=== PATIENT | male | born 1955 | race Caucasian/White ===

== ENCOUNTER → 2016-10-15 | Day surgery (SDC) | payer BC ==
[~2016-10-15] MED LIST: GLIMEPIRIDE2 MG PO; MEDROL4 MG/DOSE- PO; OXYCODONE HCL10 MG PO; PRINIVIL10 MG PO; TEMAZEPAM30 MG PO
--- NOTE | ~2016-10-15 | OR ---
Unit #: [id number] #: [id number] Patient: DEBBIE HERNANDEZ [id number] [address] [address] [id number] O MR#: [id number] NAME: DEBBIE HERNANDEZ ROOM: Date of Procedure: 10/15/2016 Admission Date: 10/15/2016 Surgeon: Jose Murrieta M.D. : 1955 Attending Physician: Jose Murrieta M.D. Primary Care Physician: Neal Hughes M.D. OPERATIVE REPORT PREOPERATIVE DIAGNOSES Neck pain, cervical radiculopathy, post-cervical fusion, pseudoarthrosis, cervical disk disease. POSTOPERATIVE DIAGNOSES Neck pain, cervical radiculopathy, post-cervical fusion, pseudoarthrosis, cervical disk disease. PROCEDURE PERFORMED Cervical epidural steroid injection with intravenous sedation and fluoroscopic guidance for needle localization. INDICATIONS FOR PROCEDURE The patient is a 61-year-old male with neck and left upper extremity pain. He is status post C4 through C7 fusion with adjacent level disease, and significant neural foraminal narrowing especially on the left. The patient failed to settle with conservative measures. Plan is for trial of epidural steroids. Risks and benefits of all which have been reviewed. DESCRIPTION OF PROCEDURE The patient was placed in a seated position. Standard monitors were applied. 2 mg of Versed were given for sedation and anxiolysis, which were adequate. Vital signs remained stable. Sterile prep and drape of the cervical area was performed. The skin then at the C5-C6 level was localized with 1% lidocaine. An 18-gauge Hustead needle was then advanced via hanging drop technique and fluoroscopic guidance in toward the epidural space. After confirming proper positioning with fluoroscopy and radiographic contrast, 80 mg Depo-Medrol and 2 mL of 0.25% bupivacaine were deposited. The patient tolerated the procedure otherwise well and was discharged to the recovery room in stable condition. Dictated by... Darrian Duarte/kimberlyl TD: 10/16/2016 01:42 JOB #: [id number] Unit #: [id number] #: [id number] Patient: DEBBIE HERNANDEZ OPERATIVE REPORT Page 1 of 1 X Jose Murrieta MD X PROCEDURE OPERATIVE NOTE
== END | disposition home or self-care (01) ==
LOC: CCSC 10:12
DX: M50.10 Cervical disc disorder with radiculopathy, unspecified cervical region (principal); I10 Essential (primary) hypertension; I25.10 Atherosclerotic heart disease of native coronary artery without angina pectoris; F17.210 Nicotine dependence, cigarettes, uncomplicated; Z98.1 Arthrodesis status; Z98.890 Other specified postprocedural states; S12.9XXA Fracture of neck, unspecified, initial encounter; X58.XXXA Exposure to other specified factors, initial encounter
CPT/HCPCS: 82947; J1040; J2250

== ENCOUNTER → 2016-10-29 | Day surgery (SDC) | payer BC ==
--- NOTE | ~2016-10-29 | OR ---
Unit #: [id number] #: [id number] Patient: DEBBIE HERNANDEZ [id number] [address] [place], [place] [address] [id number] O MR#: [id number] NAME: DEBBIE HERNANDEZ ROOM: Date of Procedure: 10/29/2016 Admission Date: 10/29/2016 Surgeon: Jose Murrieta M.D. : 1955 Attending Physician: Jose Murrieta M.D. Primary Care Physician: Neal Hughes M.D. PROCEDURE OPERATIVE NOTE PREOPERATIVE DIAGNOSES 1. Post cervical fusion. 2. Degenerative cervical disk disease. 3. Neck pain. 4. Cervical radiculopathy. POSTOPERATIVE DIAGNOSES 1. Post cervical fusion. 2. Degenerative cervical disk disease. 3. Neck pain. 4. Cervical radiculopathy. PROCEDURE PERFORMED Cervical epidural steroid injection with intravenous sedation and fluoroscopic guidance for needle localization. HISTORY This 61-year-old male with worsening neck and left upper extremity pain. He has a fusion, C4 through 7, and has a pseudarthrosis, severe neural foraminal narrowing, especially at the C6-7 level. There is adjacent level disease. Patient had failed cervical conservative treatment alone and initial epidural steroid injection two weeks ago resulted in moderate left upper extremity greater than neck pain. Based on this good partial response, we proceeded with the second injection today. PROCEDURE Patient was placed in a seated position. Standard monitors were applied. Versed, 2 mg, was given for sedation and anxiolysis, which were adequate. Vital signs remained stable. Sterile prep and drape then of the cervical area was performed. Skin at the C6 level was localized with 1% lidocaine. An 18 gauge Ocean Seedtead needle was then advanced via a hanging drop technique and fluoroscopic guidance in toward the epidural space. After confirming proper positioning with fluoroscopy and radiographic contrast, 80 mg of Depo-Medrol and 2 mL of 0.25% bupivacaine were deposited. The patient tolerated the procedure otherwise well and was discharged to the recovery room in stable condition. Dictated by... Jose Murrieta M.D. Unit #: [id number] #: [id number] Patient: DEBBIE HERNANDEZ ADALGISAP/thao TD: 10/29/2016 08:34 JOB #: [id number] PROCEDURE OPERATIVE NOTE Page 1 of 1 X Jose Murrieta MD X PROCEDURE OPERATIVE NOTE
== END | disposition home or self-care (01) ==
LOC: CCSC 06:57
DX: M50.10 Cervical disc disorder with radiculopathy, unspecified cervical region (principal); M99.71 Connective tissue and disc stenosis of intervertebral foramina of cervical region; I10 Essential (primary) hypertension; I25.10 Atherosclerotic heart disease of native coronary artery without angina pectoris; Z79.891 Long term (current) use of opiate analgesic; Z79.84 Long term (current) use of oral hypoglycemic drugs; Z79.899 Other long term (current) drug therapy; Z98.1 Arthrodesis status
CPT/HCPCS: 82947; J1040; J2250

== ENCOUNTER → 2016-11-12 | Day surgery (SDC) | payer BC ==
--- NOTE | ~2016-11-12 | OR ---
Unit #: [id number] #: [id number] Patient: DEBBIE HERNANDEZ [id number] [address] [place], [place] [address] [id number] O MR#: [id number] NAME: DEBBIE HERNANDEZ ROOM: Date of Procedure: 11/12/2016 Admission Date: 11/12/2016 Surgeon: Jose Murrieta M.D. : 1955 Attending Physician: Jose Murrieta M.D. Primary Care Physician: Neal uHghes M.D. OPERATIVE REPORT JOB NOTE: CC: [facility] PREOPERATIVE DIAGNOSES Post-cervical fusion, degenerative cervical disk disease, neck pain, cervical radiculopathy. POSTOPERATIVE DIAGNOSIS Post-cervical fusion, degenerative cervical disk disease, neck pain, cervical radiculopathy. PROCEDURE PERFORMED Cervical epidural steroid injection with intravenous sedation and fluoroscopic guidance for needle localization. INDICATIONS FOR PROCEDURE The patient is a 61-year-old male with neck and left upper extremity radicular pain, status post C4 through C7 fusion. He has significant neural foraminal narrowing at C3-C4 through C6-C7. He is not a candidate for repeat surgery. He has failed to settle with conservative measures. So, plan is to give him a trial of epidural steroids. Treatment done over the last several weeks. They have given additive improvement in significant with his upper extremity and moderately significant with his neck. He has better range of motion in his neck and overall was gotten 50% to 60% improvement. Based on his good partial response, his pathology, and symptomatology, we are going to proceed with a final injection now and to see the patient back in several weeks' time at pain center. DESCRIPTION OF PROCEDURE The patient was placed in a seated position. Standard monitors were applied. 2 mg of Versed were given for sedation and anxiolysis, which were adequate. Vital signs remained stable. Sterile prep and drape then of the cervical area was performed. The skin at the C6 level was localized with 1% lidocaine. An 18-gauge C4Robotead needle was then advanced via loss of resistance technique and fluoroscopic guidance in toward the epidural space. After confirming proper positioning with fluoroscopy and radiographic contrast, 80 mg of Depo-Medrol and 2 mL of 0.25% bupivacaine were deposited. The patient tolerated the procedure otherwise well and was discharged to recovery room in stable condition. Dictated by... Unit #: [id number] #: [id number] Patient: HERNANDEZDEBBIE M.D. LHP/tia TD: 11/12/2016 22:25 JOB #: [id number] OPERATIVE REPORT Page 1 of 1 X Jose Murrieta MD X PROCEDURE OPERATIVE NOTE
== END | disposition home or self-care (01) ==
LOC: CCSC 07:38
DX: M50.121 Cervical disc disorder at C4-C5 level with radiculopathy (principal); M50.122 Cervical disc disorder at C5-C6 level with radiculopathy; M50.123 Cervical disc disorder at C6-C7 level with radiculopathy; I10 Essential (primary) hypertension; I25.10 Atherosclerotic heart disease of native coronary artery without angina pectoris; Z98.1 Arthrodesis status
CPT/HCPCS: 82947; J1040; J2250